=== PATIENT | female | born 1945 | race Caucasian/White ===

== ENCOUNTER 2016-11-25 09:47 | Day surgery (SDC) | payer MEDICARE, BC ==
--- NOTE | 2016-11-25 06:23 | PCM.HP ---
H&P History of Present Illness - General Admit Problem/Dx: erroneous encounter see Dr. Laurie Vega's History and Physical - Related Data Allergies/Adverse Reactions: Allergies Allergy/AdvReac Type Severity Reaction Status Date / Time No Known Allergies Allergy Verified 11/25/16 10:59 Home Medications: Home Meds Aspirin 325 mg PO DAILY 11/24/16 [History] Cholecalciferol (Vitamin D3) [Vitamin D3] 2,000 unit PO DAILY 11/24/16 [History] Diltiazem HCl [Cartia Xt] 180 mg PO DAILY 11/24/16 [History] Multivitamin [Multivitamins] 1 tab PO DAILY 11/24/16 [History] Psyllium Seed (With Sugar) [Metamucil Powder] 2 tbsp PO DAILY 11/24/16 [History] Simvastatin 40 mg PO Q48H 11/24/16 [History] Ubidecarenone [Coq-10] 100 mg PO DAILY 11/24/16 [History] Pantoprazole Sodium [Protonix] 40 mg PO DAILY #90 tablet. 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 Musculoskeletal History: Reports: None Neurological History: Reports: None Psychiatric History: Reports: None Endocrine/Metabolic History: Reports: None Hematologic History: Reports: None Immunologic History: Reports: None Oncologic (Cancer) History: Reports: None Dermatologic History: Reports: None - Past Surgical History HEENT Surgical History: Reports: Oral Surgery Other HEENT Surgeries/Procedures: has flipper Social & Family History - Tobacco Use Month Tobacco Last Used: 2003 - Caffeine Use Caffeine Use: Reports: Coffee - Recreational Drug Use Recreational Drug Use: No Drug Use in Last 12 Months: No H&P Review of Systems - Review of Systems: Review Of Systems: See Below Exam - Exam Exam: See Below *Q Meaningful Use (ADM) - VTE *Q VTE Criteria *Q: - Stroke *Q Stroke Criteria *Q: - AMI *Q AMI Criteria *Q:
--- NOTE | 2016-11-25 08:30 | PCM.OPNOTE ---
- General Post-Op/Procedure Note Date of Surgery/Procedure: 11/25/16 Operative Procedure(s): 1. Diagnostic EGD with cold forceps biopsy. 2. Diagnostic colonoscopy with hot snare polypectomy Pre Op Diagnosis: Positive FIT test, no prior colonoscopy, family hx of colon cancer in brother, internal hemorrhoids Post-Op Diagnosis: Gastritis, duodenitis, gastric ulcers, internal hemorrhoids, colon polyp Anesthesia Technique: MAC Primary Surgeon: Laurie Vega Anesthesia Provider: Monica Velazquez Jewelry Salesperson: Altagracia Greene Pathology: 1. Small bowel biopsy 2. Antral biopsy 3. Distal esophageal biopsy 4. Polyp at 45 cm Fluid Replacement, Intraop: 900 (mL crystalloid) EBL in mLs: 1 Complications: None Condition: Good Free Text/Narrative:: INDICATION FOR PROCEDURE: The patient is a 71-year-old female who was referred to me by ADONAY Colin for evaluation for positive FIT test. Performing a colonoscopy and EGD and the associated risks of the procedures had been discussed with the patient. The patient found these risks acceptable and agreed to proceed. DESCRIPTION OF PROCEDURE: The patient was taken to the operating room and placed in the left lateral decubitus position. After induction of adequate sedation, a bite block was placed. A standard Olympus gastroscope was inserted into the oropharynx and guided down the esophagus without difficulty. The gastroesophageal junction was appreciated at 39 cm from the teeth. There was no evidence of stricture or esophageal ulcerations. The scope was advanced into the stomach, and there were gastric ulcers, linear and cratered, with no active bleeding or visible clot. The scope was passed into the proximal jejunum and the duodenum which showed duodenitis. There were no ulcerations. The proximal jejunum was grossly normal in appearance. Multiple cold forceps biopsies were obtained of the proximal jejunum and duodenum. The scope was withdrawn into the antrum, and additional cold forceps biopsies were obtained. The remainder of the gastric body was examined, and there were no other abnormalities. The scope was retroflexed, and there was no evidence of hiatal hernia. The scope was straightened and withdrawn to the GE junction. Additional cold forceps biopsies were obtained of the distal esophagus. The scope was withdrawn through the remainder of the esophagus and no further abnormalities were noted. The posterior oropharynx was grossly normal in appearance. The scope was fully withdrawn and attention was then turned to the colonoscopy. A digital rectal exam was performed which was unremarkable. A pediatric Olympus colonoscope was inserted into the rectum and guided under direct visualization to the appendiceal orifice and ileocecal valve. The scope was then slowly withdrawn through the colon. The quality of the prep was good. There was no evidence of angiodysplasias or diverticulum. A polyp was noted at 45 cm from the anal verge and it was removed with hot snare and retrieved. The scope was withdrawn into the rectum and retroflexed. Grade I internal hemorrhoids were present, they were quite small and hemorrhoidal banding was not required. The scope was straightened, the colon was desufflated, and the scope was withdrawn. The patient was awakened from sedation and transferred to the recovery room in stable condition having tolerated the procedure well. POSTOPERATIVE PLAN: I discussed with the patient and her my intraoperative findings and recommendations. The patient will follow up in approximately 7-10 days to discuss pathology and how their symptoms are progressing. The patient is to start Protonix 40mg daily and Carafate three times daily. I have asked the patient to follow a GERD\gastritis diet. The patient is to call with any worsening of symptoms or questions prior to the appointment.
[~2016-11-25 09:47] MED LIST: Lactated Ringers 1,000 ML IV SCH; Lidocaine 1%/Sod Bicarbonate in NS 8.4% 1 ML Syringe IV PRN; Sodium Chloride 0.9% 10 ML Syringe FLUSH PRN
--- NOTE | 2016-11-25 10:34 | PCM.PREANE ---
Preanesthetic Assessment - Procedure Proposed Procedure: Diagnostic EGD and Colonoscopy - Anesthesia/Transfusion/Family Hx Anesthesia History: Prior Anesthesia Without Reaction Type of Anesthesia Reaction: Unknown Family History of Anesthesia Reaction: No Transfusion History: No Prior Transfusion(s) Type of Transfusion Reactions: Reports: Unknown Intubation History: Unknown - Review of Systems General: No Symptoms Pulmonary: No Symptoms Cardiovascular: Palpitations (afib related ), Other (pacemaker, 3degree heart block, SSS, afib (intermittent), HTN ) Gastrointestinal: No symptoms Neurological: No Symptoms Other: Reports: Easy Bruising - Physical Assessment NPO Status Date: 11/24/16 NPO Status Time: 17:30 Pulse: 70 O2 Sat by Pulse Oximetry: 97 Respiratory Rate: 20 Blood Pressure: 154/66 Temperature: 35.7 C Height: 1.6 m Weight: 73.028 kg ASA Class: 3 Mental Status: Alert & Oriented x3 Airway Class: Mallampati = 2 Dentition: Reports: Partial (top 2 front teeth ) Thyro-Mental Finger Breadths: 3 Mouth Opening Finger Breadths: 3 ROM/Head Extension: Full Lungs: Clear to auscultation, Normal respiratory effort Cardiovascular: Regular Rate, Regular Rhythm - Allergies Allergies/Adverse Reactions: Allergies Allergy/AdvReac Type Severity Reaction Status Date / Time No Known Allergies Allergy Verified 11/24/16 14:39 - Blood Blood Available: No Product(s) Available: None - Anesthesia Plan Pre-Op Medication Ordered: None - Acknowledgements Anesthesia Type Planned: MAC Pt an Appropriate Candidate for the Planned Anesthesia: Yes Alternatives and Risks of Anesthesia Discussed w Pt/Guardian: Yes Pt/Guardian Understands and Agrees with Anesthesia Plan: Yes PreAnesthesia Questionnaire Cardiovascular History: Reports: Afib, Hypertension, [place], Pacemaker, Other (See Below) Other Cardiovascular History: sick sinus syndrome prior to pacemaker, palpitations prior to pacemaker Respiratory History: Reports: None Gastrointestinal History: Reports: None Genitourinary History: Reports: None 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 Musculoskeletal History: Reports: None Neurological History: Reports: None Psychiatric History: Reports: None Endocrine/Metabolic History: Reports: None Hematologic History: Reports: None Immunologic History: Reports: None Oncologic (Cancer) History: Reports: None Dermatologic History: Reports: None - Past Surgical History HEENT Surgical History: Reports: Oral Surgery Other HEENT Surgeries/Procedures: has flipper - SUBSTANCE USE Recreational Drug Use History: No - HOME MEDS Home Medications: Home Meds Aspirin 325 mg PO DAILY 11/24/16 [History] Cholecalciferol (Vitamin D3) [Vitamin D3] 2,000 unit PO DAILY 11/24/16 [History] Diltiazem HCl [Cartia Xt] 180 mg PO DAILY 11/24/16 [History] Multivitamin [Multivitamins] 1 tab PO DAILY 11/24/16 [History] Psyllium Seed (With Sugar) [Metamucil Powder] 2 tbsp PO DAILY 11/24/16 [History] Simvastatin [Simvastatin] 40 mg PO Q48H 11/24/16 [History] Ubidecarenone [Coq-10] 100 mg PO DAILY 11/24/16 [History] - CURRENT (IN HOUSE) MEDS Current Meds: Current Medications Lactated Ringer's (Ringers, Lactated) 1,000 mls @ 125 mls/hr IV ASDIRECTED RAJESH Stop: 11/25/16 23:00 Lidocaine/Sodium Bicarbonate (Buffered Lidocaine 1% In Ns 8.4%) 0.25 ml IV ONETIME PRN PRN Reason: Prior to IV Start Stop: 11/25/16 18:00 Sodium Chloride (Saline Flush) 10 ml FLUSH ASDIRECTED PRN PRN Reason: Keep Vein Open Stop: 11/25/16 18:00
[2016-11-25] MEDS ORDERED: fentaNYL 100 MCG/2 ML SDV ONE (11:27)
[2016-11-25] MEDS ORDERED: Propofol 200 MG/20 ML SDV ONE ×2 (11:27→11:55)
[2016-11-25] MEDS ORDERED: Lidocaine 1% 4 ML ONE (11:27)
--- NOTE | 2016-11-25 11:33 | PCM.CONS ---
H&P History of Present Illness - General Date of Service: 11/25/16 Admit Problem/Dx: positive FIT test, no prior colonoscopy, family hx of colon cancer in brother, internal hemorrhoids - History of Present Illness Initial Comments - Free Text/Narative: A 71-year-old woman with positive FIT test and family history of colon cancer in her brother who presents for diagnostic EGD and colonoscopy. She was last seen in the office on October 22. She has had no changes in her health since that time. She was referred by ADONAY Olvera. - Related Data Allergies/Adverse Reactions: Allergies Allergy/AdvReac Type Severity Reaction Status Date / Time No Known Allergies Allergy Verified 11/25/16 10:59 Home Medications: Home Meds Aspirin 325 mg PO DAILY 11/24/16 [History] Cholecalciferol (Vitamin D3) [Vitamin D3] 2,000 unit PO DAILY 11/24/16 [History] Diltiazem HCl [Cartia Xt] 180 mg PO DAILY 11/24/16 [History] Multivitamin [Multivitamins] 1 tab PO DAILY 11/24/16 [History] Psyllium Seed (With Sugar) [Metamucil Powder] 2 tbsp PO DAILY 11/24/16 [History] Simvastatin 40 mg PO Q48H 11/24/16 [History] Ubidecarenone [Coq-10] 100 mg PO DAILY 11/24/16 [History] Pantoprazole Sodium [Protonix] 40 mg PO DAILY #90 tablet. 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 Musculoskeletal History: Reports: None Neurological History: Reports: None Psychiatric History: Reports: None Endocrine/Metabolic History: Reports: None Hematologic History: Reports: None Immunologic History: Reports: None Oncologic (Cancer) History: Reports: None Dermatologic History: Reports: None - Past Surgical History HEENT Surgical History: Reports: Oral Surgery Other HEENT Surgeries/Procedures: has flipper Social & Family History - Family History Oncologic: Reports: Colon (Brother) - Tobacco Use Month Tobacco Last Used: 2003 - Caffeine Use Caffeine Use: Reports: Coffee - Recreational Drug Use Recreational Drug Use: No Drug Use in Last 12 Months: No H&P Review of Systems - Review of Systems: Review Of Systems: ROS reveals no pertinent complaints other than HPI. Exam - Exam Exam: See Below - Vital Signs Vital Signs: Last Vital Signs Temp 96.2 F 11/25/16 10:47 Pulse 70 11/25/16 10:47 Resp 20 11/25/16 10:47 BP 154/66 H 11/25/16 10:47 Pulse Ox 97 11/25/16 10:47 Weight: 160 lb 12.8 oz - Exam Quality Assessment: No: Supplemental Oxygen General: Alert, Oriented, Cooperative HEENT: Hearing Intact. No: Scleral Icterus Neck: Supple, Trachea Midline, 2 Lungs: Clear to Auscultation, Normal Respiratory Effort Cardiovascular: Regular Rate, Regular Rhythm Abdomen: Soft. No: Peritoneal Signs, Distention, Guarding, Rigidity, Rebound, Tenderness Extremities: No: Cyanosis, Calf Tenderness Skin: Warm, Dry, Intact Neurological: Cranial Nerves Intact, Normal Speech Neuro Extensive - Mental Status: Alert, Oriented x3, Normal Mood/Affect Psychiatric: Alert, Normal Affect, Normal Mood Consult PN Assessment/Plan Procedures: Procedures CARDIOVASCULAR STRESS TEST (07/03/15) HT MUSCLE IMAGE SPECT MULT (07/03/15) Problem List Initiated/Reviewed/Updated: Yes Plan: 71-year-old woman with positive FIT test and family history of colon cancer in brother. We will proceed with EGD and colonoscopy as planned. Risk were reviewed with the patient and her . They found these acceptable and agreed to proceed
--- NOTE | 2016-11-25 12:02 | PCM48HPAN ---
Post Anesthesia Note - EVALUATION WITHIN 48HRS OF ANESTHETIC Vital Signs in Normal Range: Yes Patient Participated in Evaluation: Yes Respiratory Function Stable: Yes Airway Patent: Yes Cardiovascular Function Stable: Yes Hydration Status Stable: Yes Pain Control Satisfactory: Yes Nausea and Vomiting Control Satisfactory: Yes Mental Status Recovered: Yes
[2016-11-25 14:29] VITALS: BP 158/80
== END 2016-11-25 13:10 | disposition home or self-care (01) ==
LOC: JD.SDS 09:47
PROVIDERS: ATTEND Surgery
DX: D12.6 Benign neoplasm of colon, unspecified (principal); K29.50 Unspecified chronic gastritis without bleeding; K25.9 Gastric ulcer, unspecified as acute or chronic, without hemorrhage or perforation; K29.80 Duodenitis without bleeding; K64.8 Other hemorrhoids; I10 Essential (primary) hypertension; I48.91 Unspecified atrial fibrillation; E78.5 Hyperlipidemia, unspecified; I25.2 Old myocardial infarction; Z87.891 Personal history of nicotine dependence; Z95.0 Presence of cardiac pacemaker; Z79.01 Long term (current) use of anticoagulants; Z80.0 Family history of malignant neoplasm of digestive organs; Z98.890 Other specified postprocedural states
CPT/HCPCS: 43239; 45385; 88305; J3010; J7120; J2704

== ENCOUNTER 2017-04-03 13:27 | Emergency (ER) | payer MEDICARE, BC ==
[2017-04-03 13:43] VITALS: BP 147/95
[2017-04-03] MEDS ORDERED: Diltiazem 25 MG/5 ML SDV IVPUSH ONE (14:31)
[2017-04-03] MEDS ORDERED: Sodium Chloride 0.9% 250 ML IV ONE (14:32)
[2017-04-03] MEDS ORDERED: Diltiazem IR 30 MG Tab PO ONE (16:32)
--- NOTE | 2017-04-03 17:20 | EDM.PDOC ---
ED HPI GENERAL MEDICAL PROBLEM - General Chief Complaint: Cardiovascular Problem Stated Complaint: IRREGULAR HEART BEAT Time Seen by Provider: 04/03/17 13:45 Source of Information: Reports: Patient History Limitations: Reports: No Limitations - History of Present Illness INITIAL COMMENTS - FREE TEXT/NARRATIVE: The patient is a 72-year-old female who has a history of paroxysmal atrial fibrillation. She also has a pacemaker for sick sinus syndrome. She comes in today for palpitations. States that she felt then when she got up this morning. She felt fine yesterday. Has a strong sense of an irregular heartbeat. She is checked her blood pressure and heart rate multiple times today and while her blood pressure has mostly been normal, her heart rate has been fast, as high as 130 bpm. No provoking factors. She's been compliant with her diltiazem, which is 180 mg extended release daily. She also took an additional immediate release 30 mg tab though this was from an supply that several years ago. Continued to have palpitations so came in for evaluation. No chest pain. No shortness of breath. No lightheadedness or syncope. No fever or recent illness. No cough, vomiting, diarrhea. No lower extremity pain or swelling. - Related Data Allergies Allergy/AdvReac Type Severity Reaction Status Date / Time No Known Allergies Allergy Verified 11/25/16 10:59 Home Meds: Home Meds Aspirin 325 mg PO DAILY 11/24/16 [History] Cholecalciferol (Vitamin D3) [Vitamin D3] 2,000 unit PO DAILY 11/24/16 [History] Diltiazem HCl [Cartia Xt] 180 mg PO DAILY 11/24/16 [History] Multivitamin [Multivitamins] 1 tab PO DAILY 11/24/16 [History] Psyllium Seed (With Sugar) [Metamucil Powder] 2 tbsp PO DAILY 11/24/16 [History] Simvastatin 40 mg PO Q48H 11/24/16 [History] Ubidecarenone [Coq-10] 100 mg PO DAILY 11/24/16 [History] Pantoprazole Sodium [Protonix] 40 mg PO DAILY #90 tablet. 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 Musculoskeletal History: Reports: None Neurological History: Reports: None Psychiatric History: Reports: None Endocrine/Metabolic History: Reports: None Hematologic History: Reports: None Immunologic History: Reports: None Oncologic (Cancer) History: Reports: None Dermatologic History: Reports: None - Past Surgical History HEENT Surgical History: Reports: Oral Surgery Other HEENT Surgeries/Procedures: has flipper Social & Family History - Family History Oncologic: Reports: Colon - Tobacco Use Smoking Status *Q: Former Smoker Used Tobacco, but Quit: Yes Month Tobacco Last Used: 2003 - Caffeine Use Caffeine Use: Reports: None - Recreational Drug Use Recreational Drug Use: No Drug Use in Last 12 Months: No ED ROS GENERAL - Review of Systems Review Of Systems: See Below Constitutional: Denies: Fever, Weakness HEENT: Reports: No Symptoms Respiratory: Denies: Shortness of Breath, Cough Cardiovascular: Reports: Palpitations. Denies: Chest Pain Endocrine: Reports: No Symptoms GI/Abdominal: Denies: Abdominal Pain : Reports: No Symptoms Musculoskeletal: Reports: No Symptoms Skin: Reports: No Symptoms Neurological: Reports: No Symptoms Psychiatric: Reports: No Symptoms Hematologic/Lymphatic: Reports: No Symptoms Immunologic: Reports: No Symptoms ED EXAM, GENERAL - Physical Exam Exam: See Below Exam Limited By: No Limitations General Appearance: Alert, WD/WN, No Apparent Distress Eye Exam: Bilateral Eye: Normal Inspection, PERRL Ears: Normal External Exam Nose: Normal Inspection Throat/Mouth: Normal Inspection, Normal Voice, No Airway Compromise Head: Atraumatic, Normocephalic Neck: Normal Inspection, Supple, Non-Tender, Full Range of Motion Respiratory/Chest: No Respiratory Distress, Lungs Clear, Normal Breath Sounds, No Accessory Muscle Use Cardiovascular: No Edema, No Murmur, No Rub, Tachycardia, Irregularly Irregular GI/Abdominal: Soft, Non-Tender, No Distention. No: Rebound Back Exam: Normal Inspection Extremities: Normal Inspection, No Pedal Edema Neurological: Alert, Oriented, Normal Cognition, No Motor/Sensory Deficits Psychiatric: Normal Affect, Normal Mood Skin Exam: Warm, Dry, Intact, Normal Color, No Rash Course - Vital Signs Last Recorded V/S: Last Vital Signs Temp 36.1 C 04/03/17 13:41 Pulse 114 H 04/03/17 13:41 Resp 21 H 04/03/17 13:41 BP 147/95 H 04/03/17 13:41 Pulse Ox 97 04/03/17 13:41 - Orders/Labs/Meds Orders: Active Orders 24 hr Category Date Time Status EKG 12 Lead [EKG Documentation Completion] [RC] STAT Care 04/03/17 13:48 Active EKG 12 Lead [EKG Documentation Completion] [RC] STAT Care 04/03/17 16:32 Active Chest 1V Frontal [CR] Stat Exams 04/03/17 14:32 Taken Labs: Laboratory Tests 04/03/17 04/03/17 04/03/17 Range/Units 14:00 14:00 16:44 WBC 5.26 (3.98-10.04) K/mm3 RBC 5.25 H (3.98-5.22) M/mm3 Hgb 15.1 (11.2-15.7) gm/L Hct 45.1 H (34.1-44.9) % MCV 85.9 (79.4-94.8) fl MCH 28.8 (25.6-32.2) pg MCHC 33.5 (32.2-35.5) g/dl RDW Std Deviation 42.9 (36.4-46.3) fL Plt Count 241 (182-369) K/mm3 MPV 10.0 (9.4-12.3) fl Neut % (Auto) 54.9 (34.0-71.1) % Lymph % (Auto) 31.0 (19.3-51.7) % [place] % (Auto) 11.0 (4.7-12.5) % Eos % (Auto) 2.7 (0.7-5.8) Baso % (Auto) 0.4 (0.1-1.2) % Neut # (Auto) 2.89 (1.56-6.13) K/mm3 Lymph # (Auto) 1.63 (1.18-3.74) K/mm3 [place] # (Auto) 0.58 H (0.24-0.36) K/mm3 Eos # (Auto) 0.14 (0.04-0.36) K/mm3 Baso # (Auto) 0.02 (0.01-0.08) K/mm3 Sodium 141 (136-145) mEq/L Potassium 4.1 (3.5-5.1) mEq/L Chloride 104 (98-107) mEq/L Carbon Dioxide 28 (21-32) mEq/L Anion Gap 13.1 (5-15) BUN 18 (7-18) mg/dL Creatinine 1.1 H (0.55-1.02) mg/dL Est Cr Clr Drug Dosing 38.24 mL/min Estimated GFR (MDRD) 49 (>60) mL/min BUN/Creatinine Ratio 16.4 (14-18) Glucose 160 H (83-115) mg/dL Calcium 10.0 (8.5-10.1) mg/dL Magnesium 2.0 (1.8-2.4) mg/dl Total Bilirubin 1.4 H (0.2-1.0) mg/dL AST 20 (15-37) U/L ALT 32 (14-59) U/L Alkaline Phosphatase 77 (46-116) U/L Troponin I 0.059 H* 0.064 H* (0.00-0.056) ng/mL Total Protein 8.1 (6.4-8.2) g/dl Albumin 4.1 (3.4-5.0) g/dl Globulin 4.0 gm/dL Albumin/Globulin Ratio 1.0 (1-2) Meds: Medications Discontinued Medications Generic Name Dose Route Start Last Admin Trade Name Freq PRN Reason Stop Dose Admin Diltiazem HCl 20 mg 04/03/17 14:31 04/03/17 14:42 Diltiazem IVPUSH 04/03/17 14:32 20 mg ONETIME ONE Administration Diltiazem HCl 30 mg 04/03/17 16:32 04/03/17 16:47 Cardizem PO 04/03/17 16:33 30 mg ONETIME ONE Administration Sodium Chloride 250 mls @ 1,000 mls/hr 04/03/17 14:32 04/03/17 14:42 Normal Saline IV 04/03/17 14:46 1,000 mls/hr ONETIME ONE Administration - Re-Assessments/Exams Free Text/Narrative Re-Assessment/Exam: 04/03/17 19:13 EKG shows atrial fibrillation with a rate of 90. She has some minimal lateral ST depressions that are less than half a millimeter. There is no ST elevation. Chest x-ray shows normal cardiac silhouette, pacemaker present, no pulmonary edema. Labs show a minimally elevated troponin at 0.056, electrolytes normal, otherwise unremarkable. She was given a dose of 20 mg of diltiazem as her heart rate initially was ranging mostly from 100-130 or so. After the dose of diltiazem, her heart rate was mostly in the 70-90 range. Her blood pressure has been within normal limits throughout. Repeat EKG still shows atrial fibrillation , with slower rate, now with occasional paced complexes. Patient has been asymptomatic other than palpitations. Her repeat troponin continues to be minimally elevated, at 0.06. This is likely supply demand ischemia from her tachycardia today. She did have a negative stress test 2 years ago. Discussed at length with patient. Offered cardioversion and discussed risks and benefits of electrical cardioversion, with prefer to avoid this for now. Discussed that there is still a chance that she will spontaneously convert. We will increase her diltiazem extended release to 240 mg daily. She will follow-up with her public transit specialist as soon as possible. Discussed return precautions. We'll defer anticoagulation decision to her primary care doctor or public transit specialist once it becomes clear if this episode of atrial fibrillation will be persistent. Departure - Departure Time of Disposition: 17:51 Disposition: Home, Self-Care 01 Clinical Impression: Atrial fibrillation Qualifiers: Atrial fibrillation type: paroxysmal Qualified Code(s): I48.0 - Paroxysmal atrial fibrillation Prescriptions: Diltiazem HCl [Dilt-Xr] 240 mg PO DAILY #30 cap.er.deg Instructions: Atrial Fibrillation Referrals: Myrtle Snow NP [Primary Care Provider] - Forms: ED Department Discharge Additional Instructions: 1. Follow up with your public transit specialist as soon as possible, ideally this week. 2. Increase diltiazem to 240 mg as prescribed. 3. Return to the Emergency Department if you have: - chest pain - difficulty breathing - lightheadedness/feeling like you may pass out - heart rate consistently 115 or higher - any other concerning symptoms - My Orders Last 24 Hours: My Active Orders 04/03/17 13:48 EKG 12 Lead [EKG Documentation Completion] [RC] STAT 04/03/17 14:32 Chest 1V Frontal [CR] Stat 04/03/17 16:32 EKG 12 Lead [EKG Documentation Completion] [RC] STAT - Assessment/Plan Last 24 Hours: My Active Orders 04/03/17 13:48 EKG 12 Lead [EKG Documentation Completion] [RC] STAT 04/03/17 14:32 Chest 1V Frontal [CR] Stat 04/03/17 16:32 EKG 12 Lead [EKG Documentation Completion] [RC] STAT
--- NOTE | 2017-04-04 19:58 | CR ---
Chest: Portable view of the chest was obtained. Comparison: Previous portable chest x-ray of 09/16/09. Heart size and mediastinum are within normal limits. Pacemaker is noted. Lungs are clear. Bony structures show minimal scoliosis within the spine. Impression: 1. Incidental findings. Nothing acute is appreciated on portable chest x-ray. Diagnostic code #2
== END 2017-04-03 18:00 | disposition home or self-care (01) ==
LOC: JD.ED 13:27
DX: I48.0 Paroxysmal atrial fibrillation (principal); Z79.82 Long term (current) use of aspirin; Z79.899 Other long term (current) drug therapy; Z87.891 Personal history of nicotine dependence
CPT/HCPCS: 36415; 71010; 80053; 83735; 84484; 85025; 93005; 96361; 96374; 99285; A9270; J3490; J7040; 93010

== ENCOUNTER 2017-04-22 08:55 | Day surgery (SDC) | payer MEDICARE, BC ==
[~2017-04-22 08:55] MED LIST changes: -Lidocaine 1%/Sod Bicarbonate in NS 8.4% 1 ML Syringe IV PRN; +Lidocaine 1%/Sod Bicarbonate in NS 8.4% 1 ML Syringe PRN
--- NOTE | 2017-04-22 09:16 | PCM.PREANE ---
Preanesthetic Assessment - Procedure Proposed Procedure: EGD - Anesthesia/Transfusion/Family Hx Anesthesia History: Prior Anesthesia Without Reaction Family History of Anesthesia Reaction: No Transfusion History: No Prior Transfusion(s) Type of Transfusion Reactions: Reports: Unknown Intubation History: Unknown - Review of Systems General: No Symptoms Pulmonary: No Symptoms Cardiovascular: No Symptoms Gastrointestinal: No Symptoms Neurological: No Symptoms Other: Reports: None - Physical Assessment NPO Status Date: 04/21/17 NPO Status Time: 21:30 Pulse: 64 O2 Sat by Pulse Oximetry: 97 Respiratory Rate: 16 Blood Pressure: 136/74 Temperature: 97.6 F Height: 1.6 m Weight: 73.482 kg ASA Class: 2 Mental Status: Alert & Oriented x3 Dentition: Reports: Partial Thyro-Mental Finger Breadths: 3 Mouth Opening Finger Breadths: 3 ROM/Head Extension: Full Lungs: Clear to Auscultation, Normal Respiratory Effort Cardiovascular: Regular Rate, Regular Rhythm - Allergies Allergies/Adverse Reactions: Allergies Allergy/AdvReac Type Severity Reaction Status Date / Time No Known Allergies Allergy Verified 11/25/16 10:59 - Blood Blood Available: No - Anesthesia Plan Pre-Op Medication Ordered: None Beta Grey: Metoprolol Med Last Dose Date: 04/21/17 Med Last Dose Time: 21:30 - Acknowledgements Anesthesia Type Planned: MAC Pt an Appropriate Candidate for the Planned Anesthesia: Yes Alternatives and Risks of Anesthesia Discussed w Pt/Guardian: Yes Pt/Guardian Understands and Agrees with Anesthesia Plan: Yes PreAnesthesia Questionnaire HEENT History: Reports: Other (See Below) Other HEENT History: has paritals Cardiovascular History: Reports: Afib, Hypertension, LA, Pacemaker, Other (See Below) Other Cardiovascular History: sick sinus syndrome prior to pacemaker, palpitations prior to pacemaker Respiratory History: Reports: None Gastrointestinal History: Reports: None, Colon Polyp, Gastritis, Hemorrhoids, Other (See Below) Other Gastrointestinal History: gastric ulcers, gastritis Genitourinary History: Reports: None 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 Musculoskeletal History: Reports: None Neurological History: Reports: None Psychiatric History: Reports: None Endocrine/Metabolic History: Reports: None Hematologic History: Reports: None Immunologic History: Reports: None Oncologic (Cancer) History: Reports: None Dermatologic History: Reports: None - Past Surgical History Head Surgeries/Procedures: Reports: None HEENT Surgical History: Reports: Oral Surgery Other HEENT Surgeries/Procedures: has flipper Cardiovascular Surgical History: Reports: Pacer GI Surgical History: Reports: Colonoscopy, EGD Female Surgical History: Reports: None Male Surgical History: Reports: None Endocrine Surgical History: Reports: None Neurological Surgical History: Reports: None Musculoskeletal Surgical History: Reports: None Oncologic Surgical History: Reports: None - SUBSTANCE USE Smoking Status *Q: Former Smoker Second Hand Smoke Exposure: Yes Recreational Drug Use History: No - HOME MEDS Home Medications: Home Meds Aspirin 325 mg PO DAILY 11/24/16 [History] Cholecalciferol (Vitamin D3) [Vitamin D3] 2,000 unit PO DAILY 11/24/16 [History] Multivitamin [Multivitamins] 1 tab PO DAILY 11/24/16 [History] Psyllium Seed (With Sugar) [Metamucil Powder] 2 tbsp PO DAILY 11/24/16 [History] Simvastatin 40 mg PO DAILY 11/24/16 [History] Ubidecarenone [Coq-10] 100 mg PO DAILY 11/24/16 [History] Pantoprazole Sodium [Protonix] 40 mg PO DAILY #90 tablet.dr 11/25/16 [Rx] Diltiazem HCl [Dilt-Xr] 240 mg PO DAILY #30 cap.er.deg 04/03/17 [Rx] Metoprolol Succinate 50 mg PO DAILY 04/21/17 [History] - CURRENT (IN HOUSE) MEDS Current Meds: Current Medications Lactated Ringer's (Ringers, Lactated) 1,000 mls @ 125 mls/hr IV ASDIRECTED RAJESH Stop: 04/22/17 23:00 Lidocaine/Sodium Bicarbonate (Buffered Lidocaine 1% In Ns 8.4%) 0.25 ml .XX ONETIME PRN PRN Reason: Prior to IV Start Stop: 04/22/17 18:00 Sodium Chloride (Saline Flush) 10 ml FLUSH ASDIRECTED PRN PRN Reason: Keep Vein Open Stop: 04/22/17 18:00
[2017-04-22] MEDS ORDERED: Propofol 200 MG/20 ML SDV ONE (10:10)
[2017-04-22] MEDS ORDERED: Lidocaine 1% 4 ML ONE (10:11)
[2017-04-22 10:39] VITALS: BP 115/66
== END 2017-04-22 11:16 | disposition home or self-care (01) ==
LOC: JD.SDS 08:55
PROVIDERS: ATTEND Surgery
DX: K25.9 Gastric ulcer, unspecified as acute or chronic, without hemorrhage or perforation (principal); K44.9 Diaphragmatic hernia without obstruction or gangrene; K22.10 Ulcer of esophagus without bleeding; I10 Essential (primary) hypertension; E78.5 Hyperlipidemia, unspecified; Z95.0 Presence of cardiac pacemaker; Z98.890 Other specified postprocedural states; Z79.82 Long term (current) use of aspirin; Z79.899 Other long term (current) drug therapy; Z87.891 Personal history of nicotine dependence
CPT/HCPCS: 43235; J7120; 00740; J2704